=== PATIENT | female | born 1995 | race American Indian/Alaskan Native ===

== ENCOUNTER 2019-10-29 10:47 | Emergency (ER) | payer MEDICAID ==
[2019-10-29 11:00] VITALS: BP 137/96
[2019-10-29] MEDS ORDERED: IBUPROFEN 800 MG TAB PO ONE (11:27)
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
--- NOTE | 2019-10-29 11:34 | XRay Report ---
LEFT SHOULDER 3 VIEWS INDICATION: Trauma, pain. COMPARISON: None. IMPRESSION: No acute osseous or soft tissue abnormality. No significant DJD. Signer Name: Charlie Rolon Jr, MD Signed: 10/29/2019 11:29 AM Workstation Name: [id number]
[2019-10-29] MEDS ORDERED: HYDROcodone/ACETAMINOPHEN 10-325MG TAB PO ONE (12:01)
== END 2019-10-29 12:30 | disposition home or self-care (01) ==
LOC: ED 10:47
DX: M25.512 Pain in left shoulder (principal); F12.10 Cannabis abuse, uncomplicated; Z79.899 Other long term (current) drug therapy; Y08.89XA Assault by other specified means, initial encounter; Y93.89 Activity, other specified; Y92.89 Other specified places as the place of occurrence of the external cause; Y99.8 Other external cause status
CPT/HCPCS: 99282